=== PATIENT | female | born 1960 | race Caucasian/White ===

== ENCOUNTER 2016-10-25 08:28 | Inpatient (IN) | payer OTHER ==
[~2016-10-25] VITALS: Ht 154.9 cm; Wt 71.3 kg
[~2016-10-25 08:28] MED LIST: ASPIRIN325 MG PO; BENAZEPRIL HCL/1 TAB PO; CARISOPRODOL350 MG PO; CLINDAMYCIN HC300 MG PO; COL100 PO; CYMBALTA30 M1 PO; FENOFIBRATE MI134 MG PO; LAC PO; LEVAQUIN750 MG PO; LIO10 PO; NEU100 PO; NOR10T PO; NORCO1 TA2 PO; SIMVASTATIN20 M1 PO
--- NOTE | 2016-10-25 08:30 | NUR ---
PT BIB [facility] WITH C/O ALOC SINCE 1800 YESTERDAY. PT PRESENTS AWAKE AND ORIENTED TO NAME ONLY. PT UNABLE TO ANSWER OTHER QUESTIONS HOWEVER PT APPEARS TO BE ABLE TO NOD TO YES/NO QUESTIONS. PT FOLLOWS SIMPLE COMMANDS. NO FACIAL DROOP NOTED. EYES 3MM REACTIVE AND SLUGGISH. NO SIGN OF PAIN OR DISCOMFORT. PT SHAKES HEAD "NO" WHEN ASKING IF IN PAIN. PT NOTED TO HAVE SMALL MUSCLE TWITCHS TO BODY AND AND ARMS. RESP EVEN AND UNLABORED, RA. LS CTA JAMIE. ABD NOTED TO BE ROUND AND SOFT. NO SIGN OF PAIN UPON PALPATION OF CHEST OR ABD. NO OBVIOUS SIGN OF HEAD INJURY OR OTHER INJURY.
--- NOTE | 2016-10-25 08:35 | NUR ---
DR WATSON AT BEDSIDE FOR MSE
--- NOTE | 2016-10-25 08:37 | NUR ---
PT TAKEN BY LIZZY FOR CT SCAN "CODE BRAIN"
--- NOTE | 2016-10-25 08:48 | NUR ---
LAB AT BEDSIDE FOR BLOOD DRAW
--- NOTE | 2016-10-25 08:51 | NUR ---
EMT AT BEDSIDE FOR EKG
--- NOTE | 2016-10-25 08:57 | NUR ---
PT AT BEDSIDE AND SPEAKING TO DR WATSON. PER PT : PT WAS CLEANING HOUSE "ALL DAY" WITH THE "A/C OUT"; REPORTS COMING HOME FROM [facility] AT APPROX 1830 AND FINDING PT HOT AND DIAPHORETIC, HE REPORTS TELLING PT TO STOP WORKING AND REST AND REPORTS AT THAT TIME PT WAS "COHERENT"; REPORTS PT BECAME INCREASINGLY MORE INCOHERANT UNTIL APPROX 0 AT WHICH TIME PT PRESENTED IN SIMILAR CONDITION SHE IS NOW IN ER. PT REPORTS SIMILAR CONDITION OCCURED APPROX 2 YRS AGO WITH BEING OUT IN HOT WEATHER.
--- NOTE | 2016-10-25 09:04 | NUR ---
R/T AT BEDSIDE FOR ABG
[2016-10-25 09:13] LABS: BASOPHIL % 0.5 % (0-2); PLATELET COUNT 286 x10^3mcL (130-400)
[2016-10-25 09:20] LABS: RED CELL DISTRIBUTION WIDTH 15.5 % (11.5-14.5)
--- NOTE | 2016-10-25 09:20 | NUR ---
RADIOLOGY AT BEDSIDE FOR PCXR
[2016-10-25 09:24] LABS: CALCIUM 8.7 mg/dL (8.5-10.1); CARBON DIOXIDE 26.1 mmol/L (21-32); CHLORIDE SERUM 100 mmol/L (98-107); GFR1 17 mL/min; GLUCOSE SERUM 113 mg/dL (74-106); POTASSIUM SERUM 3.7 mmol/L (3.5-5.1); SODIUM SERUM 140 mmol/L (136-145)
[2016-10-25 09:28] LABS: ALBUMIN 4.1 g/dL (3.4-5.0); ALKALINE PHOSPHATASE 80 U/L (46-116); ALT/SGPT 27 U/L (14-59); AST/SGOT 38 U/L (15-37); BILIRUBIN TOTAL 0.54 mg/dL (0.20-1.00); CHOLESTEROL 236 mg/dL (<200); TOTAL PROTEIN, SERUM 8.2 g/dL (6.4-8.2)
--- NOTE | 2016-10-25 09:31 | NUR ---
PT SLEEPING AT THIS TIME. RESP EVEN AND UNLABORED, 2LT NC. VS STABLE. NAD NOTED. PT REMAINS AT BEDSIDE
[2016-10-25] MEDS ORDERED: BACLOFEN10 MG PO (09:38)
[2016-10-25] MEDS ORDERED: HYDROCHLOROTHIA25 MG PO (09:38)
[2016-10-25] MEDS ORDERED: BENAZEPRIL HYDR40 M1 PO (09:38)
[2016-10-25] MEDS ORDERED: CYMBALTA60 M1 PO (09:39)
[2016-10-25] MEDS ORDERED: FENOFIBRATE160 M1 PO (09:39)
[2016-10-25 09:48] LABS: AMPHETAMINE QUAL UR POSITIVE (NEG <=1000)
--- NOTE | 2016-10-25 09:53 | NUR ---
DR WATSON AT BEDSIDE DISCUSSING PT ADMISSION AND POC TO PT HUSBAD PT IS SLEEPING AT THIS TIME
--- NOTE | 2016-10-25 10:30 | NUR ---
REPORT GIVEN TO ANNMARIE RN IN [facility] FOR CONTINUITY OF CARE. PT IS SLEEPING AT THIS TIME AND REMAINS IN STABLE CONDITION. RESP EVEN AND UNLABORED, 2LT NC. VS STABLE. NAD NOTED. PT AT BEDSIDE
--- NOTE | 2016-10-25 10:31 | NUR ---
AWAITING VERBAL OK FROM DR WATSON TO TRANSPORT PT TO [facility]
[2016-10-25 10:44] LABS: UA SPECIFIC GRAVITY >=1.030 (1.005-1.035); microscopic required? YES; urine erythrocyte TRACE (NEGATIVE)
--- NOTE | 2016-10-25 11:00 | NUR ---
RECIEVED PT. FROM ED VIA [facility]ERNEY ,APPEARS LETHARGIC BUT ARROUSABLE AND VERBALLY RESPONSIVE W/ SLOW SPEECH.APPEARS DISORIENTED. PT. AT BEDSIDE.JOSÉ CATH. PATENT AND DRAINING ALEXANDRA COLOR URINE.PUT ON TEL.#3 MONITOR SHOWS NSR. DENIES ANY PAIN AT THIS TIME. ORIENTED TO ROOM AND SURROUNDINGS. CALL LIGHT W/ IN REACH. ROUTINE ADMISSION CARE RENDERED.MADE PT. COMFORTBLE IN BED.ALL SR. UP , AWARE OF PT. ADMISSION SCD APPLIED TO JAMIE. LOWER EXTR.
[2016-10-25 11:48] VITALS: BP 109/58
[2016-10-25 12:03] LABS: CHOLESTEROL/HDL RATIO 9.1
[2016-10-25 12:07] LABS: FREE T4 1.19 ng/dL (0.76-1.46); FREE THYROXINE INDEX 3.5 ug/dL (1.4-4.5); T3 TOTAL 1.19 ng/mL; T4(THYROXINE) 11.4 ug/dL (4.7-13.3)
[2016-10-25 12:50] VITALS: BP 128/50
--- NOTE | 2016-10-25 13:20 | NUR ---
PT. C/O PAIN IN LOWER EXTR. MEDICATED W/ NORCO ORDERED AND MADE COMFORTABLE IN BED. CALL LIGHT W/ IN REACH. AT BEDSIDE AND VERY SUPPORTIVE.
--- NOTE | 2016-10-25 14:00 | NUR ---
PT. SLEEP MOST OF THE TIME BUT ARROUSABLE AND VERBALY RESPONSIVE.NO ACUTE DISTRESS NOTED.
[2016-10-25 16:46] VITALS: BP 115/61
--- NOTE | 2016-10-25 18:20 | NUR ---
PT. AWAKEND AND EAT DINNER ASSISTED BY HER .ATE FAIRLY AND NO ACUTE DISTRESS NOTED. CALL LIGHT W/ IN REACH.
--- NOTE | 2016-10-25 20:02 | NUR ---
RECEIVED PT IN BED, AWAKE, DROWSY. ABLE TO FOLLOW COMMANDS. DENIES HEADACHE/DIZZINESS. RESP. EVEN AND UNLABORED. [address], NO DISTRESS NOTED. SR ON THE MONITOR, DENIES CHEST PAIN OR ANY DISCOMFORT AT THIS TIME. IVF, NS AT 100ML/HR, INTACT AND INFUSING VIA LFA, SITE CLEAR. JOSÉ CATH INTACT AND DRAINING ALEXANDRA COLOR URINE. ABLE TO TURNE AND REPOSITION SELF. HS CARE DONE.CALL LIGHT WITHIN REACH. FAMILY MEMBER AT THE BEDSIDE.WILL CONTINUE TO MONITOR.
[2016-10-25 21:07] VITALS: BP 140/66
--- NOTE | 2016-10-25 22:59 | NUR ---
PT RESTING IN BED, WITH EYES CLOSED. RESP. EVEN AND UNLABORED. NO DISTRESS NOTED. WILL CONTINUE TO MONITOR.
--- NOTE | 2016-10-26 01:54 | NUR ---
IV SITE INFILTRATED,DISCONT. NEW IV SITE RESTARTED ON RT HAND WITH #22G ANGIO. IVF INFUSING AT THIS TIME. WILL CONTINUE TO MONITOR.
[2016-10-26 05:22] VITALS: BP 156/75
--- NOTE | 2016-10-26 06:20 | NUR ---
AFEBRILE AND VITAL SIGNS STABLE. RESP. EVEN AND UNLABORED. [address], NO DISTRESS NOTED. SLEPT MOST OF THE NIGHT. NO SEIZURE ACTIVITY NOTED. IVF INTACT AND INFUSING WELL, SITE CLEAR. MORE ALERT AND FOLLOWS COMMANDS.KEPT COMFORTABLE. JOSÉ CATH INTACT AND PATENT. CARE DONE. WILL CONTINUE TO MONITOR.
[2016-10-26 07:15] LABS: BASOPHIL % 0.1 % (0-2); PLATELET COUNT 251 x10^3mcL (130-400)
[2016-10-26 07:28] LABS: RED CELL DISTRIBUTION WIDTH 15.5 % (11.5-14.5)
--- NOTE | 2016-10-26 07:45 | NUR ---
AWAKE,ALERT AND ABLE TO VERBALIZED NEEDS,CALL LIGHT W/ IN REACH,ABLE TO AMBULATE IN THE BATHROOM ,CONT. IV FLUIDS AND IV ANTIBIOTIC ORDERED.NO ACUTE RESP. DISTRESS NOTED. WILL CONT. PLAN OF CARE.
[2016-10-26 07:53] LABS: CALCIUM 8.8 mg/dL (8.5-10.1); CARBON DIOXIDE 26.7 mmol/L (21-32); CHLORIDE SERUM 106 mmol/L (98-107); CREATININE SERUM 0.8 mg/dL (0.6-1.0); GFR1 > 60 mL/min; GLUCOSE SERUM 112 mg/dL (74-106); POTASSIUM SERUM 3.6 mmol/L (3.5-5.1); SODIUM SERUM 141 mmol/L (136-145)
[2016-10-26 08:16] VITALS: BP 155/56
--- NOTE | 2016-10-26 09:10 | NUR ---
DR. PEREYRA HERE W/ OTHER MEDICAL STAFF MADE ROUNDS AND UPDATED PT. PLAN OF CARE.
--- NOTE | 2016-10-26 11:00 | NUR ---
D/C JOSÉ CATH. ORDERED W/ OUT OUPUT 450 CC ALEXANDRA COLOR URINE.
--- NOTE | 2016-10-26 11:30 | NUR ---
PT. AMBULATED IN THE BATHROOM AND VOIDING WELL W/ 1 BM .
--- NOTE | 2016-10-26 14:00 | NUR ---
PT. ENCOURAGE PT. TO AMBULATE IN [address] AND [place]. WELL.DENIES ANY PAIN NO ACUTE DISTRESS NOTED.
[2016-10-26 14:05] VITALS: BP 188/74
--- NOTE | 2016-10-26 15:00 | NUR ---
DR. HASTINGS HERE AND SEEN THE PT. W/ NEW ORDERS MADE OK PT. TO GO HOME TODAY PT. MADE AWARE AND AWAITING FOR RIDE.
[2016-10-26 15:30] VITALS: BP 154/75
== END 2016-10-26 16:31 | disposition home or self-care (01) | DRG 896 ==
LOC: ED 08:28 → DU 10:02
PROVIDERS: Specialist; ADMIT Family Medicine
DX: F19.10 Other psychoactive substance abuse, uncomplicated (principal); G92 Toxic encephalopathy; N17.0 Acute kidney failure with tubular necrosis; N39.0 Urinary tract infection, site not specified; I12.9 Hypertensive chronic kidney disease with stage 1 through stage 4 chronic kidney disease, or unspecified chronic kidney disease; E78.00 Pure hypercholesterolemia, unspecified; E66.9 Obesity, unspecified; G89.29 Other chronic pain; Z96.661 Presence of right artificial ankle joint; E86.0 Dehydration; E78.5 Hyperlipidemia, unspecified; E31.9 Polyglandular dysfunction, unspecified; N18.9 Chronic kidney disease, unspecified; M54.9 Dorsalgia, unspecified; Z82.61 Family history of arthritis; Z82.49 Family history of ischemic heart disease and other diseases of the circulatory system; Z83.3 Family history of diabetes mellitus; Z87.891 Personal history of nicotine dependence; Z68.29 Body mass index [BMI] 29.0-29.9, adult; Z79.899 Other long term (current) drug therapy
CPT/HCPCS: 36600; 82962; 83880; 84439; G0480; J0696; J7030; Q0092